=== PATIENT | female | born 1990 | race Caucasian/White ===

== ENCOUNTER 2021-11-02 19:22 | Emergency (ER) | payer MEDICAID ==
[~2021-11-02] VITALS: Ht 162.6 cm; Wt 100.0 kg
[2021-11-02] MEDS ORDERED: SODIUM CHLORIDE 0.9% 1,000 ML IV ONE (22:45)
[2021-11-02] MEDS ORDERED: DIPHENHYDRAMINE 50MG/ML VIAL IV ONE (22:45)
[2021-11-02] MEDS ORDERED: METOCLOPRAMIDE HCL 10MG/2ML VIAL IV ONE (22:45)
[2021-11-02] MEDS ORDERED: KETOROLAC 15MG/ML VIAL IV ONE (22:45)
[2021-11-02 23:01] LABS: BASOPHILS % 0.8 % (0.0-2.0); HEMATOCRIT. 39.1 % (36.0-48.0); HEMOGLOBIN. 13.6 g/dL (12.0-16.0); LYMPHOCYTES % 28.8 % (20.0-50.0); MEAN CORPUSCULAR HEMOGLOBIN 28.7 pg (28.0-32.0); MEAN CORPUSCULAR VOLUME 82.6 fL (81.0-99.0); MEAN PLATELET VOLUME 7.6 fl (7.4-10.4); MONOCYTES % 7.2 % (2.0-8.0); NEUTROPHILS % 63.2 % (40.0-76.0); PLATELET 340 x1000/uL (130-400); RED BLOOD CELL COUNT 4.73 mill/uL (4.2-5.4); RED CELL DISTRIBUTION WIDTH 13.3 % (11.6-14.6)
[2021-11-02 23:09] LABS: CHLORIDE 106 mEq/L (98-107)
[2021-11-02] MEDS ORDERED: LORAZEPAM 2MG/ML CPJ IV ONE (23:15)
[2021-11-03 02:01] LABS: CLARITY URINE CLOUDY (CLEAR); COLOR URINE YELLOW (YELLOW); KETONES URINE TRACE (NEGATIVE); LEUKOCYTE ESTERASE URINE NEGATIVE (NEGATIVE); NITRITE URINE NEGATIVE (NEGATIVE); OCCULT BLOOD URINE NEGATIVE (NEGATIVE); PROTEIN URINE NEGATIVE (NEGATIVE); SPECIFIC GRAVITY URINE 1.024 (1.005-1.030)
[2021-11-03 04:08] VITALS: BP 108/72
== END 2021-11-03 04:09 | disposition home or self-care (01) ==
LOC: ER 19:22
DX: R55 Syncope and collapse (principal); R51.9 Headache, unspecified; R42 Dizziness and giddiness; F41.9 Anxiety disorder, unspecified; F32.9 Major depressive disorder, single episode, unspecified
CPT/HCPCS: 36415; 70450; 71045; 80053; 81003; 81025; 83880; 84484; 85025; 93005; 96361; 96374; 96375; 99285; J1200; J1885; J2060; J2765; J7030